=== PATIENT | female | born 1950 | race Caucasian/White ===

== ENCOUNTER → 2016-08-29 | Outpatient (CLI) | payer MEDICARE ==
[~2016-08-29] MED LIST: BELVIQ10 MG PO; CALCIUM + D3 E1 EACH PO; CALCIUM 500 +1 EAC2 PO; FOLIC ACID1 MG PO; MULTIPLE VITAM1 EACH PO; NEXIUM40 MG PO; ORENCIA250 MG/10 IV; PLAQUENIL200 MG PO; RECLAST5 MG/100 M IV
== END | disposition home or self-care (01) ==
LOC: CDC 10:31
DX: Z01.810 Encounter for preprocedural cardiovascular examination (principal); K43.9 Ventral hernia without obstruction or gangrene
CPT/HCPCS: 93000

== ENCOUNTER 2016-09-19 05:46 | Day surgery (SDC) | payer OTHER, MEDICARE ==
[~2016-09-19] VITALS: Ht 157.5 cm; Wt 72.6 kg
[~2016-09-19 05:46] MED LIST changes: +CENTRUM SILVER1 EAC3 PO; +FOLIC ACID0.8 M1 PO; +MED FOR OSTEOPOROSIS IV
[2016-09-19 06:53] VITALS: BP 129/77
[2016-09-19] MEDS ORDERED: PERCOCET 5/31 TABLET PO (08:44)
[2016-09-19 10:16] VITALS: BP 126/71
[2016-09-19 11:25] VITALS: BP 124/70
== END 2016-09-19 12:15 | disposition home or self-care (01) ==
LOC: SDC 05:46
PROC: 0WUF4JZ Supplement Abdominal Wall with Synthetic Substitute, Percutaneous Endoscopic Approach (ICD-10-PCS; principal; 2016-09-19)
DX: K43.6 Other and unspecified ventral hernia with obstruction, without gangrene (principal); K21.9 Gastro-esophageal reflux disease without esophagitis; K22.70 Barrett's esophagus without dysplasia; K44.9 Diaphragmatic hernia without obstruction or gangrene; E66.9 Obesity, unspecified; Z68.31 Body mass index [BMI] 31.0-31.9, adult; M81.0 Age-related osteoporosis without current pathological fracture; Z79.899 Other long term (current) drug therapy; Z80.49 Family history of malignant neoplasm of other genital organs; Z80.41 Family history of malignant neoplasm of ovary; Z82.49 Family history of ischemic heart disease and other diseases of the circulatory system; Z82.3 Family history of stroke; Z87.891 Personal history of nicotine dependence
CPT/HCPCS: C1781; J0131; J0690; J1100; J1170; J1885; J2405; J2710; J3010

== ENCOUNTER 2017-09-24 12:31 | Day surgery (SDC) | payer OTHER, MEDICARE ==
[~2017-09-24] VITALS: Ht 157.5 cm; Wt 64.8 kg
[~2017-09-24 12:31] MED LIST changes: +CITRACAL PLUS1 EAC1 PO; +COZAAR100 MG PO; -FOLIC ACID0.8 M1 PO; +PERCOCET 5/31 TABLET PO; +RAYOS5 MG PO
[2017-09-24 12:58] VITALS: BP 135/61
[2017-09-24 18:33] VITALS: BP 150/87
== END 2017-09-24 18:55 | disposition home or self-care (01) ==
LOC: SDC 12:31
PROC: 06DY3ZZ Extraction of Lower Vein, Percutaneous Approach (ICD-10-PCS; principal; 2017-09-24)
DX: I83.812 Varicose veins of left lower extremity with pain (principal); I80.02 Phlebitis and thrombophlebitis of superficial vessels of left lower extremity; I10 Essential (primary) hypertension; Z87.891 Personal history of nicotine dependence; Z82.49 Family history of ischemic heart disease and other diseases of the circulatory system; Z88.5 Allergy status to narcotic agent; Z88.6 Allergy status to analgesic agent
CPT/HCPCS: 93005; C1760; C1894; J0131; J0330; J0690; J1100; J1885; J2250; J2405; J3010; S0020